=== PATIENT | female | born 1940 | race Caucasian/White ===

== ENCOUNTER → 2017-10-31 10:17 | Outpatient (CLI) | payer MEDICARE, SELFPAY ==
--- NOTE | 2017-10-31 10:19 | MM_ITS ---
MM Dig screening mamm BI w/CAD CAD Screening ORDERING PHYSICIAN : Juvenal Espinal MD PATIENT AGE: 76 years GENDER: Female COMPARISON: Previous mammograms: August 2015, 2016, July 2014, June 2013 INDICATION: No hormones. No new complaints. Nodularity family history TECHNIQUE: Standard CC and MLO images were obtained. R2 CAD reviewed. FINDINGS: Moderate density inhomogeneous breast pattern which somewhat decreases sensitivity mammography.. Moderate scattered fibroglandular elements bilateral. Scattered areas of minimal density in asymmetry have been seen on previous studies with no significant change. No dominant mass nor suspicious calcifications. RIGHT BREAST:No significant new findings LEFT BREAST: Scattered areas of focal density at the anterior lateral breast on cc view are similar to studies dating back to 2013. It dissipates from the CC and axillary cc view IMPRESSION: Stable mammogram No significant new findings either breast . Moderately dense breast Follow-up in one year BI-RADS Category: 2 Benign Finding(s) RECOMMENDED FOLLOW-UP: 1YR - 1 YEAR FOLLOW-UP (A letter has been sent to the patient regarding results of the study.) In
== END ==
PROVIDERS: Family Provider Family Medicine; PCP Nurse Practitioner; Visit Provider Family Medicine
DX: Z12.31 Encounter for screening mammogram for malignant neoplasm of breast (principal)
CPT/HCPCS: 77067

== ENCOUNTER 2020-10-12 12:26 | Emergency (ER) | payer MEDICARE, SELFPAY ==
[2020-10-12 12:33] VITALS: BP 134/87; PULSE 74; RESP 16; TEMP 36.6; O2SAT 99; BMI 24.6
[2020-10-12 12:42] VITALS: BP 145/101; PULSE 88; RESP 16; TEMP 36.7; O2SAT 97; BMI 24.6
--- NOTE | 2020-10-12 13:03 | HMH.EDUTC ---
[facility] [place] Disposition Clinical Impression: Lymphadenopathy of right cervical region Pharyngitis Qualifiers: Pharyngitis/tonsillitis etiology: unspecified etiology Qualified Code(s): J02.9 - Acute pharyngitis, unspecified Disposition: Home, Self-Care Condition on Discharge: Good Instructions: DI for Lymphadenopathy Additional Instructions: Drink plenty of fluids. Take tylenol for pain or fever. Return if you begin to have difficulty breathing. Follow up with your regular doctor. GO TO THE ER FOR ANY WORSENING SYMPTOMS Prescriptions: Azithromycin [Z-Marcelino 250mg Tab*] 250 mg PO UD DOSE PK #6 tab Transmission Status: Received by [facility] #[id number] Referrals: Juvenal Espinal MD [Primary Care Provider] - Time of Disposition: 13:12 Medical Decision Making - Medical Records Medical records reviewed: No: I reviewed the patient's medical records. - Jj Inquiry Pt receiving controlled substance: No Vital Signs: 10/12/20 12:33 10/12/20 12:42 10/12/20 13:54 Temperature 98 F 98.1 F 98.3 F Temperature Source Oral Oral Pulse Rate 91 H Pulse Rate [Right] 74 88 Respiratory Rate 16 16 16 Blood Pressure 139/98 H Blood Pressure [Right Arm] 134/87 145/101 H Blood Pressure Mean [Right Arm] 102 115 Blood Pressure Source [Right Arm] Automatic Cuff Automatic Cuff Blood Pressure Position [Right Arm] Sitting Sitting 02 Sat by Pulse Oximetry 99 97 Oxygen Delivery Method Room Air Room Air - Lab Data Lab results reviewed: Yes: I reviewed the patient's lab results. [facility] [place] HPI - General Stated complaint: swollen lymphodes and headache Time Seen by Provider: 10/12/20 13:03 Mode of Arrival: Ambulatory Source of Information: Patient Limitations: No Limitations Description of Symptoms (Recalled from Triage Doc. by RN): pt states the front of her neck and under her jaw is hurting. it appears swollen and pt voiced is muffled. she is a&o x4. HEENT Symptoms (Recalled from RN notes): Yes (swollen front of neck and lymph nodes) Resp Symptoms (Recalled from RN notes): No Skin Symptoms (Recalled from RN notes): No MS Symptoms (Recalled from RN notes): No Functional Status (Recalled from RN notes): na - History of Present Illness Provider Complaint: She c/o sore throat and swollen lymph nodes of the left side of her neck. She states that her symptoms began 2 days ago. She denies any shortness of breath or respiratory symptoms. She denies any known exposure to covid-19. - Related Data Previous Rx's Medication Instructions Recorded Azithromycin [Z-Marcelino 250mg Tab*] 250 mg PO UD DOSE PK #6 tab 10/12/20 Allergies Allergy/AdvReac Type Severity Reaction Status Date / Time No Known Allergies Allergy Verified 10/12/20 13:13 - Worker's Comp Is this a Worker's Comp case?: No [facility] History - Hepatitis A Screen Drug use history?: No High risk sexual behaviors?: No History of sexually transmitted infection?: No Currently employed?: No Childcare worker?: No Do you have indoor plumbing?: Yes Do you have electricity?: Yes Attestation statement:: This patient has been screened for Hepatitis A risk factors. I have reviewed the patient's past medical history: Yes - Social History Smoking Status: Unknown if ever smoked Alcohol Intake: never Occupational Status: retired ROS Obtained: Yes All systems reviewed & no additional complaints - Constitutional Constitutional: Denies chills, Denies fever(s), Reports poor appetite, Reports malaise - Eyes Eyes: Denies blind spots, Denies blurry vision, Denies change in vision, Denies diplopia, Denies eye discharge - ENT Ears, Nose, Mouth, and Throat: Denies dizziness, Denies otalgia, Reports nasal congestion, Reports post nasal drip, Denies sinus pain, Reports sinus pressure, Reports sore throat - Cardiovascular Cardiovascular: Denies chest pain - Respiratory Respiratory: Denies chest congestion, Denies cough, Denies dyspnea, Denies stridor, Denies
[2020-10-12 13:54] VITALS: BP 139/98; PULSE 91; RESP 16; TEMP 36.8
[2020-10-13 19:02] LABS: UTC Strep Screen (Rapid) Negative (Negative)
== END 2020-10-12 13:50 | disposition home or self-care (01) ==
PROVIDERS: Emergency Provider Nurse Practitioner Family; PCP Family Medicine
DX: J02.9 Acute pharyngitis, unspecified (principal); R59.1 Generalized enlarged lymph nodes
CPT/HCPCS: 87880; 99202; G0463; U0003

== ENCOUNTER 2022-03-06 10:45 | Emergency (ER) | payer MEDICARE, SELFPAY ==
[2022-03-06 12:15] VITALS: BP 160/79; PULSE 73; RESP 19; TEMP 36.8; O2SAT 98; BMI 23.5
--- NOTE | 2022-03-06 12:49 | HMH.EDUTC ---
[facility] [place] Disposition Clinical Impression: COPD exacerbation, Hypokalemia Disposition: Home, Self-Care Condition on Discharge: Good Instructions: DI for Chronic Obstructive Pulmonary Disease Additional Instructions: Follow up with Dr Espinal next week. Recheck potassium. Prescriptions: Potassium Chloride 20 meq PO DAILY 5 Days #5 tab Transmission Status: Pending to [facility] predniSONE [Prednisone 20mg Tab] 20 mg PO BID 5 Days #10 tab Transmission Status: Pending to [facility] Azithromycin [Zithromax 250mg tab] 250 mg PO DIRECTED #6 tab Transmission Status: Pending to [facility] Referrals: Juvenal Espinal MD [Primary Care Provider] - Time of Disposition: 14:31 Medical Decision Making - Jj Inquiry Pt receiving controlled substance: No Vital Signs: 03/06/22 12:15 Temperature 98.3 F Temperature Source Oral Pulse Rate [Right Brachial] 73 Respiratory Rate 19 Blood Pressure [Right Arm] 160/79 H Blood Pressure Mean [Right Arm] 106 Blood Pressure Source [Right Arm] Automatic Cuff Blood Pressure Position [Right Arm] Sitting 02 Sat by Pulse Oximetry 98 Oxygen Delivery Method Room Air - Lab Data Lab results reviewed: Yes: I reviewed the patient's lab results. Lab Results 03/06/22 12:53: Sodium 137, Potassium 3.3 L, Chloride 101, Carbon Dioxide 28, Anion Gap 11.3, BUN 11, Creatinine 0.80, Estimated Creat Clear 44, Estimated GFR 69, Est GFR ( Amer) 84, Glucose 117 H, Calcium 10.1, Total Bilirubin 0.8, AST 36, ALT 19, Alkaline Phosphatase 69, Total Protein 7.8, Albumin 4.6, Globulin 3.2, Albumin/Globulin Ratio 1.4 03/06/22 12:53: WBC 10.0, RBC 4.71, Hgb 14.3, Hct 41.8, MCV 88.7, MCH 30.4, MCHC 34.3, RDW 13.0, Plt Count 211, MPV 7.2 L, Neut % (Auto) 77.9, Lymph % (Auto) 14.8, Butts % (Auto) 5.1, Eos % (Auto) 1.1, Baso % (Auto) 1.0, Neut # (Auto) 7.8, Lymph # (Auto) 1.5, Butts # (Auto) 0.5, Eos # (Auto) 0.1, Baso # (Auto) 0.1 03/06/22 12:54: Group A Strep Rapid Negative Result diagrams: 03/06/22 12:53 03/06/22 12:53 Orders (Tests/Meds): ORDERS Category Date Time Status CBC Man Diff [Complete Blood Count Man Dif] Stat Lab 03/06/22 12:53 Results Full Resp Panel w/COVID ([facility]) Routine Lab 03/06/22 12:54 Received Strep Screen Confirmation Stat Micro 03/06/22 12:54 Received - Radiology Data #1 Image(s): Chest Image Reviewed: Yes I have reviewed radiologist's interpretation PROCEDURE INFORMATION: Exam: XR Chest Exam date and time: 03/06/2022 1:00 PM Age: 81 years old Clinical indication: Cough and shortness of breath; Additional info: Congestion TECHNIQUE: Imaging protocol: Radiologic exam of the chest. Views: 2 views. COMPARISON: No relevant prior studies available. 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 Focal area of pleural thickening measuring 3.5 cm x 9 mm in the right lung apex. No acute interstitial or airspace disease. Pleural spaces: There are no pleural effusions present. There is no evidence of pneumothorax. Heart/Mediastinum: Unremarkable. No cardiomegaly. Vasculature: Calcified aortic knob. Bones/joints: No acute skeletal abnormality or aggressive osseous lesion. IMPRESSION: 1. Ellipsoid pleural based thickening in the right lung apex measuring 3.5 cm x 9 mm, nonspecific. This could be related to an area of: pleural scarring, superimposition of structures, or underlying pleural disease. Consider correlation with contrast enhanced chest CT if clinically warranted. 2. COPD/emphysema. 3. No acute thoracic pathology otherwise appreciated. [facility] [place] HPI - General Stated complaint: COLD-BREATHING ISSUES- PAIN IN SIDE AT RIBS LEFT Time Seen by Provider: 03/06/22 12:00 Mode of Arrival: Ambulatory Source of Information: Patient Limitations: No Limitations Description of Symptoms (Recalled from Triage
--- NOTE | 2022-03-06 12:54 | XR_ITS ---
PROCEDURE INFORMATION: Exam: XR Chest Exam date and time: 03/06/2022 1:00 PM Age: 81 years old Clinical indication: Cough and shortness of breath; Additional info: Congestion TECHNIQUE: Imaging protocol: Radiologic exam of the chest. Views: 2 views. COMPARISON: No relevant prior studies available. 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 Focal area of pleural thickening measuring 3.5 cm x 9 mm in the right lung apex. No acute interstitial or airspace disease. Pleural spaces: There are no pleural effusions present. There is no evidence of pneumothorax. Heart/Mediastinum: Unremarkable. No cardiomegaly. Vasculature: Calcified aortic knob. Bones/joints: No acute skeletal abnormality or aggressive osseous lesion. IMPRESSION: 1. Ellipsoid pleural based thickening in the right lung apex measuring 3.5 cm x 9 mm, nonspecific. This could be related to an area of: pleural scarring, superimposition of structures, or underlying pleural disease. Consider correlation with contrast enhanced chest CT if clinically warranted. 2. COPD/emphysema. 3. No acute thoracic pathology otherwise appreciated.
[2022-03-06 13:27] LABS: MANUAL DIFFERENTIAL MANUAL DIFFERENTIAL (MANUAL DIFF)
[2022-03-06 13:27] LABS: Adenovirus,PCR Not Detected (NotDetected); Bordetella Pertussis Not Detected (NotDetected); Chlamydophila Pneumoniae, PCR Not Detected (NotDetected); Coronavirus 19, PCR Not Detected (NotDetected); Coronavirus 229E Not Detected (NotDetected); Coronavirus NL63 Not Detected (NotDetected); Coronavirus OC43 Not Detected (NotDetected); Coronovirus HKU1,PCR Not Detected (NotDetected); Influenza A, PCR Not Detected (NotDetected); Influenza AH1, 2009 Not Detected (NotDetected); Influenza AH1, PCR Not Detected (NotDetected); Influenza AH3,PCR Not Detected (NotDetected); Influenza B, PCR Not Detected (NotDetected); Mycoplasma Pneumoniae, PCR Not Detected (NotDetected); Parainfluenza 1, PCR Not Detected (NotDetected); Parainfluenza 2, PCR Not Detected (NotDetected); Parainfluenza 3, PCR Not Detected (NotDetected); Parainfluenza 4, PCR Not Detected (NotDetected); Respiratory Syncytial Virus Not Detected (NotDetected); Rhinovirus/Enterovirus Not Detected (NotDetected)
[2022-03-06 13:31] LABS: Basophils # 0.1 K/mm3 (0-0.2); Eosinophils # 0.1 K/mm3 (0.0-0.4); Eosinophils % 1.1 % (0.1-12.0); Hematocrit 41.8 % (37.0-47.0); Hemoglobin 14.3 g/dL (12.2-16.2); Lymphocytes # 1.5 K/mm3 (0.7-4.5); Lymphocytes % 14.8 % (10-50); Mean Corpuscular HGB Conc 34.3 g/dL (31.8-35.4); Mean Corpuscular Hemoglobin 30.4 pg (27.0-31.2); Mean Corpuscular Volume 88.7 fl (81-99); Mean Platelet Volume 7.2 fl (7.4-10.4); Monocytes # 0.5 K/mm3 (0.1-1.0); Monocytes % 5.1 % (1.7-9.3); Neutrophils # 7.8 K/mm3 (1.8-7.8); Neutrophils % 77.9 % (37.0-80.0); Platelet Count 211 K/mm3 (142-424); Red Blood Count 4.71 M/mm3 (4.20-5.40)
[2022-03-06 13:39] LABS: Strep Scrn Group A (Rapid) Negative (Negative)
[2022-03-06 13:49] LABS: Chloride 101 mmol/L (98-107)
[2022-03-06 13:50] LABS: Potassium 3.3 mmoL/L (3.5-5.1); Sodium 137 mmol/L (136-145)
[2022-03-06 13:52] LABS: Alanine Aminotransferase 19 U/L (12-78); Alkaline Phosphatase 69 U/L (38-126); Anion Gap 11.3 mEq/L (5-15); Aspartate Amino Transferase 36 U/L (14-36); Bilirubin,Total 0.8 mg/dl (0.2-1.3); Blood Urea Nitrogen 11 mg/dl (7-17); Carbon Dioxide 28 mmol/L (22.0-30.0); Creatinine Clearance Estimated 44 mL/min (50-200); Estimated Glomerular Filt Rate 69 ml/min (>60); GFR (African American) 84 ML/MIN (>60)
[2022-03-06 13:53] LABS: Albumin Level 4.6 g/dl (3.5-5.0); Albumin/Globulin Ratio 1.4 (1.1-1.8); Calcium 10.1 mg/dl (8.4-10.2); Globulin 3.2 g/dL (1.3-3.2); Glucose 117 mg/dl (74-100); Total Protein,Serum 7.8 g/dl (6.3-8.2)
[2022-03-06 14:33] VITALS: BP 160/79; PULSE 73; RESP 19; TEMP 36.8; O2SAT 98
[2022-03-06 16:22] LABS: Human Metapneumovirus Detected (NotDetected)
[2022-03-06 16:32] LABS: Lymphocytes % 22 % (10-50); Monocytes % 6 % (2-9); Neutrophils % 72 % (42-76); Platelet Estimate Normal; Total Cells Counted 100
[2022-03-06 16:33] LABS: Ovalocytes 1+; Schistocytes 1+
== END 2022-03-06 14:36 | disposition home or self-care (01) ==
PROVIDERS: Emergency Provider Physician Assistant; PCP Family Medicine
DX: J44.1 Chronic obstructive pulmonary disease with (acute) exacerbation (principal); E87.6 Hypokalemia; R09.81 Nasal congestion; R05.9 Cough, unspecified; R07.0 Pain in throat; R06.02 Shortness of breath; R07.82 Intercostal pain
CPT/HCPCS: 71046; 80053; 85007; 85014; 85018; 85048; 85049; 87430; 87581; 87632; 87798; 99212; C9803; G0463; U0003; U0005

== ENCOUNTER 2025-07-20 00:58 | Emergency (ER) | payer MEDICARE, SELFPAY ==
[2025-07-20 01:07] VITALS: BP 186/78; PULSE 74; RESP 22; TEMP 36.6; O2SAT 98; BMI 21.9
--- NOTE | 2025-07-20 01:21 | CT_ITS ---
PROCEDURE INFORMATION: Exam: CTA Head With Contrast, Arteriography Exam date and time: 07/20/2025 2:18 AM Age: 84 years old Clinical indication: Other: Mild AMS, general weakness TECHNIQUE: Imaging protocol: Computed tomographic angiography of the head with contrast. Exam focused on the arteries. Radiation optimization: All CT scans at this facility use at least one of these dose optimization techniques: automated exposure control; mA and/or kV adjustment per patient size (includes targeted exams where dose is matched to clinical indication); or iterative reconstruction. COMPARISON: CT HEAD/BRAIN WO CON 07/20/2025 2:16 AM FINDINGS: ANTERIOR CIRCULATION: INTRACRANIAL INTERNAL CAROTID ARTERIES: Mild chronic predominantly calcific plaque in the mid-distal ICA without acute flow-limiting stenosis. MIDDLE CEREBRAL ARTERIES: M1 and visualized M2 segments of the MCA are without acute flow limiting stenosis. ANTERIOR CEREBRAL ARTERIES: A1 and visualized A2 segments of the ARTHUR are without acute flow limiting stenosis. Anterior communicating artery is unremarkable. . POSTERIOR CIRCULATION: VERTEBRAL ARTERIES: Intracranial vertebral arteries and their visualized branches are without acute flow limiting stenosis. BASILAR ARTERY: Bulbous enlargement of the tip of the basilar artery measuring approximately 4 x 5 mm. POSTERIOR CEREBRAL ARTERIES: Irregularity of the P1/P2 segments of the SHALE MINER BLASTING with diffuse moderate to severe likely chronic narrowing of the LEFT SHALE MINER BLASTING and multiple focal areas of narrowing on the RIGHT. IMPRESSION: 1. Chronic atherosclerotic disease without acute flow-limiting stenosis or large vessel occlusion. 2. Diffuse moderate to severe likely chronic narrowing of the LEFT SHALE MINER BLASTING and multiple focal areas of narrowing on the RIGHT. COMMENTS: Recommend followup with MRI if persistent/new/worsening symptoms or symptoms unexplained by the current study. PROCEDURE INFORMATION: Exam: CTA Neck With Contrast Exam date and time: 07/20/2025 2:18 AM Age: 84 years old Clinical indication: Other: Mild AMS, general weakness TECHNIQUE: Imaging protocol: Computed tomographic angiography of the neck with contrast. Exam focused on the cervical segments of the vasculature. 3D rendering (Not supervised by radiologist): MIP and/or 3D reconstructed images were created by the technologist. Radiation optimization: All CT scans at this facility use at least one of these dose optimization techniques: automated exposure control; mA and/or kV adjustment per patient size (includes targeted exams where dose is matched to clinical indication); or iterative reconstruction. Contrast material: ISO 370; Contrast volume: 80 ml; Contrast route: INTRAVENOUS (IV); COMPARISON: No relevant prior studies available. FINDINGS: THORACIC VESSELS: Atherosclerotic disease of the visualized aortic arch and visualized thoracic aorta without aortic aneurysm or dissection. No significant narrowing at the origin of the neck vessels. . COMMON CAROTID ARTERIES: Calcific/noncalcific plaque along the rodriguez of the common carotid arteries without acute flow limiting stenosis. . CERVICAL INTERNAL CAROTID ARTERIES: Mild calcific/noncalcific plaque at the LEFT carotid bifurcation extending to the carotid bulb without acute flow-limiting stenosis of the cervical internal carotid arteries. No evidence of an aneurysm or a dissection. . VERTEBRAL ARTERIES: Cervical vertebral arteries are without acute flow limiting stenosis. . OTHER STRUCTURES: Osteopenia with chronic degenerative changes in the visualized spine and shoulder joint(s). Circumferential wall thickening of the cervical and visualized thoracic esophagus suggestive of reflux disease/esophagitis. Scarring/pleural thickening in the lung apices. Dominant LEFT thyroid nodule. IMPRESSION: 1. Mild chronic atherosclerotic disease without acute flow-limiting stenosis, no occlusion, aneurysm or dissection of the carotid and vertebral arteries in the neck. 2. Numerous other findings as described. Recommend correlation with pertinent clinical history and follow-up as indicated. COMMENTS: Consistent with the [employer]'s Incidental Findings Committee white paper (J Am Phong Radiol 2015): In patients aged 35 years and older with an incidental thyroid nodule equal to or greater than 1.[address], MRI or extrathyroidal US, further evaluation with dedicated thyroid US is recommended for patients with normal life expectancy and without comorbidities. For smaller nodules without suspicious features, no further evaluation or follow up is recommended. REFERENCES: NASCET CRITERIA. The degree of stenosis in the cervical segment of the internal carotid artery is based on NASCET criteria. Normal is no stenosis. Mild is less than 50% stenosis. Moderate is 50-69% stenosis. Severe is 70% to 99% stenosis. Total occlusion is no detectable patent lumen.
--- NOTE | 2025-07-20 01:21 | CT_ITS ---
PROCEDURE INFORMATION: Exam: CTA Neck With Contrast Exam date and time: 07/20/2025 2:18 AM Age: 84 years old Clinical indication: Other: Mild AMS, general weakness TECHNIQUE: Imaging protocol: Computed tomographic angiography of the neck with contrast. Exam focused on the cervical segments of the vasculature. 3D rendering (Not supervised by radiologist): MIP and/or 3D reconstructed images were created by the technologist. Radiation optimization: All CT scans at this facility use at least one of these dose optimization techniques: automated exposure control; mA and/or kV adjustment per patient size (includes targeted exams where dose is matched to clinical indication); or iterative reconstruction. Contrast material: ISO 370; Contrast volume: 80 ml; Contrast route: INTRAVENOUS (IV); COMPARISON: No relevant prior studies available. FINDINGS: THORACIC VESSELS: Atherosclerotic disease of the visualized aortic arch and visualized thoracic aorta without aortic aneurysm or dissection. No significant narrowing at the origin of the neck vessels. . COMMON CAROTID ARTERIES: Calcific/noncalcific plaque along the rodriguez of the common carotid arteries without acute flow limiting stenosis. . CERVICAL INTERNAL CAROTID ARTERIES: Mild calcific/noncalcific plaque at the LEFT carotid bifurcation extending to the carotid bulb without acute flow-limiting stenosis of the cervical internal carotid arteries. No evidence of an aneurysm or a dissection. . VERTEBRAL ARTERIES: Cervical vertebral arteries are without acute flow limiting stenosis. . OTHER STRUCTURES: Osteopenia with chronic degenerative changes in the visualized spine and shoulder joint(s). Circumferential wall thickening of the cervical and visualized thoracic esophagus suggestive of reflux disease/esophagitis. Scarring/pleural thickening in the lung apices. Dominant LEFT thyroid nodule. IMPRESSION: 1. Mild chronic atherosclerotic disease without acute flow-limiting stenosis, no occlusion, aneurysm or dissection of the carotid and vertebral arteries in the neck. 2. Numerous other findings as described. Recommend correlation with pertinent clinical history and follow-up as indicated. COMMENTS: Consistent with the [employer] [employer]'s Incidental Findings Committee white paper (J Am Phong Radiol 2015): In patients aged 35 years and older with an incidental thyroid nodule equal to or greater than 1.[address], MRI or extrathyroidal US, further evaluation with dedicated thyroid US is recommended for patients with normal life expectancy and without comorbidities. For smaller nodules without suspicious features, no further evaluation or follow up is recommended. REFERENCES: NASCET CRITERIA. The degree of stenosis in the cervical segment of the internal carotid artery is based on NASCET criteria. Normal is no stenosis. Mild is less than 50% stenosis. Moderate is 50-69% stenosis. Severe is 70% to 99% stenosis. Total occlusion is no detectable patent lumen. PROCEDURE INFORMATION: Exam: CTA Head With Contrast, Arteriography Exam date and time: 07/20/2025 2:18 AM Age: 84 years old Clinical indication: Other: Mild AMS, general weakness TECHNIQUE: Imaging protocol: Computed tomographic angiography of the head with contrast. Exam focused on the arteries. Radiation optimization: All CT scans at this facility use at least one of these dose optimization techniques: automated exposure control; mA and/or kV adjustment per patient size (includes targeted exams where dose is matched to clinical indication); or iterative reconstruction. COMPARISON: CT HEAD/BRAIN WO CON 07/20/2025 2:16 AM FINDINGS: ANTERIOR CIRCULATION: INTRACRANIAL INTERNAL CAROTID ARTERIES: Mild chronic predominantly calcific plaque in the mid-distal ICA without acute flow-limiting stenosis. MIDDLE CEREBRAL ARTERIES: M1 and visualized M2 segments of the MCA are without acute flow limiting stenosis. ANTERIOR CEREBRAL ARTERIES: A1 and visualized A2 segments of the ARTHUR are without acute flow limiting stenosis. Anterior communicating artery is unremarkable. . POSTERIOR CIRCULATION: VERTEBRAL ARTERIES: Intracranial vertebral arteries and their visualized branches are without acute flow limiting stenosis. BASILAR ARTERY: Bulbous enlargement of the tip of the basilar artery measuring approximately 4 x 5 mm. POSTERIOR CEREBRAL ARTERIES: Irregularity of the P1/P2 segments of the FI[employer] REIMBURSEMENT MANAGER with diffuse moderate to severe likely chronic narrowing of the LEFT FIELD REIMBURSEMENT MANAGER and multiple focal areas of narrowing on the RIGHT. IMPRESSION: 1. Chronic atherosclerotic disease without acute flow-limiting stenosis or large vessel occlusion. 2. Diffuse moderate to severe likely chronic narrowing of the LEFT FIELD REIMBURSEMENT MANAGER and multiple focal areas of narrowing on the RIGHT. COMMENTS: Recommend followup with MRI if persistent/new/worsening symptoms or symptoms unexplained by the current study.
--- NOTE | 2025-07-20 01:21 | CT_ITS ---
PROCEDURE INFORMATION: Exam: CT Head Without Contrast Exam date and time: 07/20/2025 2:16 AM Age: 84 years old Clinical indication: Other: Mild AMS, general weakness TECHNIQUE: Imaging protocol: Computed tomography of the head without contrast. Radiation optimization: All CT scans at this facility use at least one of these dose optimization techniques: automated exposure control; mA and/or kV adjustment per patient size (includes targeted exams where dose is matched to clinical indication); or iterative reconstruction. COMPARISON: No relevant prior studies available. FINDINGS: Brain: There is diffuse prominence of the cerebral sulci, cisterns, and ventricles consistent with atrophy. No intra or extra-axial fluid collections are noted. No mass or mass effect is seen. Periventricular white matter hypoattenuation is seen consistent with chronic small vessel disease. Cerebral ventricles: No ventriculomegaly. Paranasal sinuses: Visualized sinuses are unremarkable. No fluid levels. Mastoid air cells: Visualized mastoid air cells are well aerated. Bones: Unremarkable. No acute fracture. Soft tissues: Unremarkable. IMPRESSION: No acute process noted.
[2025-07-20 01:38] LABS: Hematocrit 42.6 % (37.0-47.0); Hemoglobin 14.7 g/dL (12.2-16.2); Immature Granulocytes % 0.4 %; Mean Corpuscular HGB Conc 34.5 g/dL (31.8-35.4); Mean Corpuscular Hemoglobin 31.6 pg (27.0-31.2); Mean Corpuscular Volume 91.6 fl (81-99); Nucleated Red Blood Cells % 0 %; Platelet Count 241 K/mm3 (142-424); Red Blood Count 4.65 M/mm3 (4.20-5.40); Red Cell Distribution Width-SD 42.1 fL; White Blood Count 7.2 K/mm3 (4.8-10.8)
[2025-07-20 01:40] LABS: Lactate Venous 1.3 mmol/L (0.4-2.0); VBG HCO3 26.1 mmol/L (23-30); VBG PCO2 47.8 mmol/L (35-51); VBG PH 7.36 mmol/L (7.31-7.41); VBG PO2 29.2 mmol/L (28-40)
[2025-07-20 01:43] LABS: Adenovirus,PCR Not Detected (NotDetected); Chlamydophila Pneumoniae, PCR Not Detected (NotDetected); Coronavirus 19, PCR Not Detected (NotDetected); Coronovirus HKU1,PCR Not Detected (NotDetected); Influenza A, PCR Not Detected (NotDetected); Influenza AH1, 2009 Not Detected (NotDetected); Influenza AH1, PCR Not Detected (NotDetected); Influenza AH3,PCR Not Detected (NotDetected); Influenza B, PCR Not Detected (NotDetected); Mycoplasma Pneumoniae, PCR Not Detected (NotDetected); Parainfluenza 1, PCR Not Detected (NotDetected); Parainfluenza 2, PCR Not Detected (NotDetected); Parainfluenza 3, PCR Not Detected (NotDetected); Parainfluenza 4, PCR Not Detected (NotDetected)
--- NOTE | 2025-07-20 01:45 | ECG_ITS ---
APPROVED REPORT Exam: Resting ECG HR:68 bpm ECG Measurements Heart Rate 68 AXES IL 180 P 69 QRSd 142 QRS 36 QT 439 T 95 QTc 456 Conclusion SINUS RHYTHM LEFT BUNDLE BRANCH BLOCK [120+ ms QRS DURATION, 80+ ms Q/S IN V1/V2, 85+ ms R IN I/aVL/V5/V6] No STEMI Electronically signed by : ERASMO RASMUSSEN, 07/20/2025 07:24:12
[2025-07-20 01:53] LABS: Alanine Aminotransferase 13 U/L (12-78); Albumin Level 4.8 g/dl (3.5-5.0); Albumin/Globulin Ratio 1.7 (1.1-1.8); Alkaline Phosphatase 91 U/L (38-126); Anion Gap 13.1 mEq/L (5-15); Aspartate Amino Transferase 27 U/L (14-36); Bilirubin,Total 0.6 mg/dl (0.2-1.3); Blood Urea Nitrogen 14 mg/dl (7-17); Calcium 9.7 mg/dl (8.4-10.2); Carbon Dioxide 24 mmol/L (22.0-30.0); Chloride 104 mmol/L (98-107); Creatinine Clearance Estimated 37 mL/min (50-200); Creatinine,Serum 0.80 mg/dl (0.52-1.04); Estimated Glomerular Filt Rate 69 ml/min (>60); GFR (African American) 83 ML/MIN (>60); Globulin 2.8 g/dL (1.3-3.2); Glucose 109 mg/dl (74-100); Potassium 4.1 mmoL/L (3.5-5.1); Sodium 137 mmol/L (136-145); Total Protein,Serum 7.6 g/dl (6.3-8.2)
[2025-07-20 02:06] LABS: Troponin I < 0.01 ng/ml (0.00-0.034)
[2025-07-20 02:12] LABS: Free T4 (Free Thyroxine) 1.12 ng/dl (0.78-2.19)
[2025-07-20 02:23] LABS: Thyroid Stimulating Hormone 2.94 uIU/mL (0.465-4.68)
[2025-07-20] MEDS: IOPAMIDOL-370 (76%);100ML BOTTLE 80 ML IV (02:29)
[2025-07-20] MEDS: SODIUM CHLORIDE 0.9% 10ML SYR (RAD ONLY) 10 ML IV (02:29)
[2025-07-20 02:38] LABS: Microscopic, Urine URINE MICROSCOPIC (MICROSCOPIC)
[2025-07-20 02:40] LABS: Bilirubin,Urine Negative (Negative); Color,Urine YELLOW (Yellow); Glucose,Urine (UA) Negative (Negative); Ketones,Urine Negative (Negative); Leukocyte Esterase,Urine 1+ (Negative); PH,Urine 7.0 (5.0-8.5); Protein,Urine Negative (Negative); Specific Gravity, Urine <= 1.005 (1.005-1.030); Urobilinogen,Urine 0.2 EU/dl (0.2)
[2025-07-20 02:44] LABS: Bacteria,Urine 4+ /lpf; RBC,Urine Occasional #/hpf (0-3); WBC,Urine 20-50 #/hpf (0-3)
[2025-07-20 02:50] LABS: Amphetamine/Metha Screen,Urine Negative ng/ml (<1000)
[2025-07-20 02:51] LABS: Barbiturates Screen,Urine Negative ng/ml (<200)
[2025-07-20 02:52] LABS: Benzodiazepines Screen,Urine Negative ng/ml (<200)
[2025-07-20 02:54] LABS: Methadone Screen,Urine Negative ng/ml (<300); Phencyclidine Screen,Urine Negative ng/ml (<25)
[2025-07-20 02:55] LABS: Opiate Screen,Urine Negative ng/ml (<300)
--- NOTE | 2025-07-20 04:24 | HMH.EDGENADL ---
Discharge Plan Disposition Patient Disposition: Home, Self-Care Condition: Good Prescriptions Prescriptions: New cefdinir 300 mg capsule 300 mg PO BID 7 Days Qty: 14 0RF No Action azithromycin 250 MG tablet 250 mg PO UD DOSE PK Qty: 6 0RF Rx Instructions: Take two (2) tablets today, then one (1) tablet days #2 thru #5 azithromycin 250 MG tablet 250 mg PO DIRECTED Qty: 6 0RF Rx Instructions: Take two (2) tablets on day #1, then one (1) tablet day #2 thru #5 prednisone 20 MG tablet 20 mg PO BID 5 Days Qty: 10 0RF potassium chloride 20 MEQ tablet extended release 20 meq PO DAILY 5 Days Qty: 5 0RF Referrals Follow up/Referrals: Juvenal Espinal MD [Primary Care Provider, Medical] - See instructions Referral Note: follow up UTI, esophageal thickening, HTN, thyroid nodule Activity Restrictions/Add. Instructions Additional Instructions/Restrictions: You were evaluated in the ER and are believed to be appropriate for discharge at this time. Continue taking your home medications as previously prescribed. Take the prescribed antibiotics (cefdinir) as directed, do not skip doses, do not stop taking them early. Drink plenty of fluids including water, Gatorade, Pedialyte to stay hydrated Call your primary care doctor and make an appointment to follow-up in 2 to 3 days. They should also recheck your blood pressure and your esophageal thickening and thyroid nodule. Return to the ER with any new, worsening, or otherwise concerning symptoms. Clinical Impressions Clinical Impression: UTI (urinary tract infection), Esophageal thickening, Thyroid nodule Print Language Print Language: Wallisian Discharge ED Provider: Anjali Aggarwal General Adult HPI General Chief complaint: PAIN Stated complaint: weakness, dry mouth, headache, abd pain Time Seen by Provider: 07/20/25 01:08 Mode of Arrival: Ambulatory Source of Information: Patient Description of Symptoms (Recalled from ER Triage Doc. by RN): Patient states around 1800 she began having 10/10 pain. States she also had periords of shaking. States she is shaking now, she is not ryley. Patient has normal and equal teletypewriter operator strengths. Patient states she just does not feel well. Patient is A&O however believes it to be 1900. Patient unable to pinpoint symptoms, states she is hurting everywhere and does not feel right. History of Present Illness HPI narrative: 84-year-old female presents to the ER complaining of shakiness, generalized weakness, not feeling well, altered mental status. Patient is alert and oriented but thought it was only 7 PM, she states around 5 PM she started having the symptoms described and sat in her recliner, she apparently fell asleep and woke up with persistent symptoms so she called her son who presents with her at bedside today. Patient states she feels shaky but when it is pointed out to her that she is not actually shaking, she is able to be redirected. She states at first that everything hurts , when asking her about her pain, she states she actually has no pain. She denies any chest pain or difficulty breathing, no abdominal pain, nausea, vomiting, diarrhea, dysuria, hematuria, headache, dizziness, numbness, tingling, or weakness. Her son states her walking today is slower than usual but the last time he saw her was 1 week ago. She denies any recent falls or injuries. No focal pain. No medications prior to arrival. No other complaints or concerns. Son states she is basically at her baseline though she is mixing up simple things she usually knows. Related Data Previous Rx's ?Medication ?Instructions ?Recorded azithromycin 250 mg tablet 250 mg PO UD DOSE PK #6 tabs 10/12/20 azithromycin 250 mg tablet 250 mg PO DIRECTED #6 tabs 03/06/22 potassium chloride 20 mEq 20 meq PO DAILY 5 days #5 tabs 03/06/22 tablet,extended release prednisone 20 mg tablet 20 mg PO BID 5 days #10 tabs 03/06/22 cefdinir 300 mg capsule 300 mg PO BID 7 days #14 caps 07/20/25 Allergies Allergy/AdvReac Type Severity Reaction Status Date / Time No Known Allergies Allergy Verified 10/12/20 13:13 [facility] Disclaimer: The information contained in this section may have been updated after the patient was seen, as this information can be updated by other users. Social History Smoking Status: Never smoker alcohol intake: never current occupational status: retired Travel in the last 8 weeks?: None Have you lived/traveled outside [place] in past 30 days?: No Contact w/someone who lives/traveled outside [place] past 30 days?: No Exposure to someone with infectious disease in past 14 days?: No Do you have a fever (greater than 100.4 F or 38 C)?: No Have you tested positive for COVID-19?: No Exposed to someone with COVID-19 in past 14 days?: No Do you have a sore throat?: No Do you have a cough?: No Do you have any weakness?: Yes Do you have any diarrhea?: No Are you experiencing any unusual bleeding?: No Do you have any muscle aches/pain?: No Do you have any abdominal pain?: Yes Are you experiencing loss of taste or smell?: No ROS Obtained: Yes Systems reviewed as appropriate & no additional complaints except as documented Per HPI Physical Exam General General appearance: alert and in no apparent distress Head Head exam: atraumatic and normocephalic Eye Eye exam: Present PERRL and EOMI; Absent jaundice or conjunctival injection ENT ENT exam: Present mucous membranes moist Neck Neck exam: Present normal inspection and full ROM Chest Chest inspection: Present symmetric chest wall rise Respiratory Respiratory exam: Present normal lung sounds bilaterally; Absent respiratory distress, wheezes or stridor Cardiovascular Cardiovascular exam: Present regular rate and normal rhythm Abdominal Exam Abdominal exam: Present soft; Absent distention, tenderness, guarding or rebound Extremities Exam Extremities exam: Present full ROM Back Exam Back exam: Present normal inspection and full ROM Neurological Exam Neurological exam: Present alert, oriented X3 (On my exam patient is fully oriented but she originally had to be redirected by nursing staff prior to me evaluating her), CN II-XII intact and other (Normal finger-nose and [id number]-ld-[id number], no cerebellar symptoms, no pronator drift); Absent motor sensory deficit Psychiatric Psychiatric exam: Present normal affect and normal mood Skin Skin exam: Present warm and dry Medical Decision Making Medical Records Medical records reviewed: Yes I reviewed the patient's medical records. Screening: Per USPSTF and CDC recommendations, given the prevalence of disease in our region, it is our hospital?s policy to screen for HIV and viral Hepatitis for all patients aged 18 and over and those with ongoing risk factors. Jj Inquiry Pt receiving controlled substance: No Vital Signs: 07/20/25 01:07 Temperature 97.8 F Temperature Source Oral Pulse Rate [Left] 74 Respiratory Rate 22 Blood Pressure [Right Arm] 186/78 H Blood Pressure Mean [Right Arm] 114 02 Sat by Pulse Oximetry 98 Oxygen Delivery Method Room Air Lab Data Lab Results 07/20/25 01:32: WBC 7.2, RBC 4.65, Hgb 14.7, Hct 42.6, MCV 91.6, MCH 31.6 H, MCHC 34.5, RDW 12.6, Plt Count 241, MPV 8.9, Neut % (Auto) 60.2, Lymph % (Auto) 24.6, [place] % (Auto) 8.5, Eos % (Auto) 5.6, Baso % (Auto) 0.7, Neut # (Auto) 4.3, Lymph # (Auto) 1.8, [place] # (Auto) 0.6, Eos # (Auto) 0.4, Baso # (Auto) 0.1, VBG pH 7.36, VBG pCO2 47.8, VBG pO2 29.2, VBG HCO3 26.1, VBG Total CO2 27.6 H, VBG O2 Saturation 58.0, VBG Base Excess 0.6, VBG Lactic Acid 1.3, Sodium 137, Potassium 4.1, Chloride 104, Carbon Dioxide 24, Anion Gap 13.1, BUN 14, Creatinine 0.80, Estimated Creat Clear 37, Estimated GFR 69, Est GFR ( Amer) 83, Glucose 109 H, Lactate 0.8, Calcium 9.7, Total Bilirubin 0.6, AST 27, ALT 13, Alkaline Phosphatase 91, Troponin I < 0.01, Total Protein 7.6, Albumin 4.8, Globulin 2.8, Albumin/Globulin Ratio 1.7, TSH 2.94, Free T4 1.12, Plasma/Serum Alcohol < 10 07/20/25 01:39: Chlamy pneumoniae PCR Not detected, Adenovirus (PCR) Not detected, B. pertussis DNA (PCR) Not detected, Coronavirus OC43 (PCR) Not detected, Coronavirus HKU1 (PCR) Not detected, Coronavirus 229E (PCR) Not detected, SARS-CoV-2 (PCR) Not detected, Coronavirus NL63 (PCR) Not detected, Human Metapneumovir PCR Not detected, Influenza A (H1) PCR Not detected, Influ A (H1N1/09) PCR Not detected, Influenza A (H3) PCR Not detected, Influenza Type A (PCR) Not detected, Influenza Type B (PCR) Not detected, M. pneumoniae (PCR) Not detected, Parainfluenza 1 (PCR) Not detected, Parainfluenza 2 (PCR) Not detected, Parainfluenza 3 (PCR) Not detected, Parainfluenza 4 (PCR) Not detected, RSV (PCR) Not detected, Entero/Rhino (PCR) Not detected 07/20/25 02:34: Urine Color Yellow, Urine Appearance Sl cloudy, Urine pH 7.0, Ur Specific [place] <= 1.005, Urine Protein Negative, Urine Glucose (UA) Negative, Urine Ketones Negative, Urine Blood Negative, Urine Nitrate Positive A, Urine Bilirubin Negative, Urine Urobilinogen 0.2, Ur Leukocyte Esterase 1+ A, Urine RBC Occasional, Urine WBC 20-50, Ur Squamous Epith Cells 3-5, Urine Bacteria 4+, Urine Opiates Screen Negative, Urine Methadone Screen Negative, Ur Barbituates Screen Negative, Ur Phencyclidine Scrn Negative, Ur Amphetamines Screen Negative, U Benzodiazepines Scrn Negative, Urine Cocaine Screen Negative, U Marijuana (THC) Screen Negative 07/20/25 01:32 07/20/25 01:32 Orders (Tests/Meds): ED MEDICATIONS Discontinued Medications Generic Name Dose Route Start Last Admin Trade Name Margie PRN Reason Stop Dose Admin Ceftriaxone Sodium 2 gm/ 100 mls @ 200 mls/hr 07/20/25 02:46 07/20/25 04:20 Sodium Chloride IV 07/20/25 03:15 Infused ONCE ONE Infusion Iopamidol 80 ml 07/20/25 02:28 07/20/25 02:29 Iopamidol-370 (76%);100ml Bottle IV 07/20/25 02:29 80 ml ONCE ONE Administration Sodium Chloride 10 ml 07/20/25 02:28 07/20/25 02:29 Sodium Chloride 0.9% 10ml Syr (Rad Only) IV 07/20/25 02:29 10 ml ONCE ONE Administration ORDERS Category Date Time Status CT angio head Stat Cat Scan 07/20/25 01:[address] angio neck Stat Cat Scan 07/20/25 01:[address] head/brain wo con Stat Cat Scan 07/20/25 01:21 Completed CBC w/Auto Diff [Complete Blood Count Auto Diff] Stat Lab 07/20/25 01:32 Completed CMP [Comprehensive Metabolic Panel] Stat Lab 07/20/25 01:32 Completed Ethanol [Ethyl Alcohol] Stat Lab 07/20/25 01:32 Completed Free T4 (Free Thyroxine) Stat Lab 07/20/25 01:32 Completed Full Resp Panel w/COVID ([facility]) Routine Lab 07/20/25 01:39 Completed Lactic Acid Stat Lab 07/20/25 01:32 Completed TSH [Thyroid Stimulating Hormone] Stat Lab 07/20/25 01:32 Completed Trop I [Troponin I] Stat Lab 07/20/25 01:32 Completed Troponin I Q3H Lab 07/20/25 07:15 Ordered UDS [Drug Screen,Urine] Stat Lab 07/20/25 02:34 Completed Urinalysis and Microscopic Stat Lab 07/20/25 02:34 Completed Blood Culture Stat Micro 07/20/25 03:00 Received Urine Culture Stat Micro 07/20/25 02:34 Received VBG [Venous Blood Gas] Stat RT 07/20/25 01:32 Completed Medical Decision Narrative: In summary, this 84-year-old female with history of COPD presents to the emergency department today with concerns of feeling generally weak, mild alteration in mental status. On initial evaluation patient is hypertensive but otherwise hemodynamically stable, afebrile, GCS is 15 but on arrival patient was confused about location, after being redirected by nursing staff, she is fully oriented on my exam. NIH is 0 on my exam. No cerebellar symptoms. Benign cardiopulmonary exam, benign abdominal exam.. Differential diagnosis includes but is not limited to ACS, hypoxia, hypercarbia, urinary tract infection, I considered the possibility of stroke or intracranial lesion but I have very low suspicion for this given patient does not have any neurologic deficits. Based on these concerns, I ordered hematologic and serum labs, CTs including angiography, urine studies, viral panel. ECG personally interpreted demonstrates sinus rhythm, rate 68, left bundle branch block, normal QTc, no STEMI. Labs personally reviewed demonstrate no leukocytosis or anemia, normal platelets, VBG with normal pH, no hypercarbia, patient is saturating well on room air, VBG lactic normal at 1.3. CMP nonactionable, initial troponin undetectably low less than 0.01 significantly reassuring in the setting of nonischemic ECG especially since patient has had symptoms for more than 6 hours. I do not believe serial troponins are indicated. UA positive for findings of infection, UDS negative, EtOH negative, viral respiratory panel negative for all analytes. With the findings on labs concerning for UTI, patient was started on Rocephin after blood cultures were administered. I believe this is the most likely explanation for her nonspecific symptoms and slight alteration from her baseline though she is oriented without neurologic deficits. CT imaging personally interpreted demonstrate no acute intracranial bleed, mass, or midline shift on CT head. CT angiography of the head and neck were reviewed, incidental findings including findings of thickening in the esophagus, thyroid nodule, and diffuse vascular disease without acute large vessel occlusion were discussed with patient and her adult son at bedside. With the presence of UTI do not believe the atherosclerotic disease correlates clinically especially since she has no neurologic deficits. Patient has ambulated to the restroom. Because she has brief moments of slight confusion, I believe it would be most appropriate for the patient to go home with help if available, otherwise she needs to be admitted to the hospital. I discussed this with the patient and her son at bedside, he states he is able to stay with her and take care of her. He will be able to help her up to the restroom if needed though she is currently steady on her feet, and ensure that she takes her medications. I believe this is a very reasonable plan. All incidental findings have been discussed with the patient and family and they were instructed to follow these up with PCP. Cefdinir prescribed. Patient and family were given instructions on continued symptomatic monitoring and management, medication use, follow-up instructions, and strict return precautions for the ER. They indicated understanding and the patient was discharged in stable condition. Critical Care Critical Care Time Critical Care Time: No
[2025-07-20 04:28] VITALS: BP 183/86; PULSE 71; RESP 18; TEMP 37.2; O2SAT 100
--- NOTE | 2025-07-23 11:57 | PC.NURSE ---
Final urine culture results discussed with . pt was admitted here the day after this visit and treated with acceptable antibiotics.
== END 2025-07-20 04:30 | disposition home or self-care (01) ==
PROVIDERS: Emergency Provider Emergency Medicine; PCP Family Medicine
DX: N39.0 Urinary tract infection, site not specified (principal); I44.7 Left bundle-branch block, unspecified; R53.1 Weakness; R41.82 Altered mental status, unspecified; K22.89 Other specified disease of esophagus; E04.1 Nontoxic single thyroid nodule; B96.20 Unspecified Escherichia coli [E. coli] as the cause of diseases classified elsewhere
CPT/HCPCS: 0223U; 70450; 70496; 70498; 80053; 80307; 80320; 81001; 82803; 83605; 84439; 84443; 84484; 85025; 87040; 87086; 87088; 87186; 93005; 96365; 99285; J0696; Q9967

== ENCOUNTER 2025-07-20 20:07 | Observation (INO) | payer MEDICARE, SELFPAY ==
--- NOTE | 2025-07-20 20:15 | XR_ITS ---
PROCEDURE INFORMATION: Exam: XR Chest Exam date and time: 07/20/2025 8:36 PM Age: 84 years old Clinical indication: Other: Encephalopathy TECHNIQUE: Imaging protocol: Radiologic exam of the chest. Views: 1 view. Total images: 1 COMPARISON: CR XR CHEST 2V 03/06/2022 1:00 PM FINDINGS: Lungs: Emphysematous changes. No acute infiltrate, airspace consolidation or vascular congestion. No pulmonary edema. Pleural spaces: Biapical pleural thickening/scarring. No pleural effusion or pneumothorax. Heart/Mediastinum: Unremarkable. No cardiomegaly. No mediastinal widening or hilar enlargement. Vasculature: Atherosclerotic aortic arch. Bones/joints: Osteopenia. Moderate degenerative changes thoracic spine. Stable chest wall structures. IMPRESSION: 1. No radiographically acute cardiopulmonary process. 2. Stable chronic findings.
--- NOTE | 2025-07-20 20:15 | ECG_ITS ---
APPROVED REPORT Exam: Resting ECG HR:85 bpm ECG Measurements Heart Rate 85 AXES MT 175 P 64 QRSd 139 QRS -12 QT 413 T 110 QTc 456 Conclusion Normal sinus rhythm Left axis Wide QRS with left bundle branch block morphology Negative Radha Electronically signed by : Froilan Washburn, 07/20/2025 22:07:47
--- NOTE | 2025-07-20 20:15 | CT_ITS ---
PROCEDURE INFORMATION: Exam: CT Head Without Contrast Exam date and time: 07/20/2025 8:32 PM Age: 84 years old Clinical indication: Altered mental status/memory loss and other: Encephalopathy TECHNIQUE: Imaging protocol: Computed tomography of the head without contrast. Total images: 567 Radiation optimization: All CT scans at this facility use at least one of these dose optimization techniques: automated exposure control; mA and/or kV adjustment per patient size (includes targeted exams where dose is matched to clinical indication); or iterative reconstruction. COMPARISON: CT ANGIO NECK 07/20/2025 2:18 AM FINDINGS: Brain: No acute intracranial hemorrhage, midline shift, or mass. Mild cortical and cerebellar atrophy. Mild remote white matter small-vessel ischemic changes. No acute territorial infarct. Basilar cisterns are preserved. Cerebral ventricles: No ventriculomegaly. Paranasal sinuses: 11 mm polyp or retention cyst base of the right maxillary sinus. Sinuses are otherwise clear. Mastoid air cells: Visualized mastoid air cells are well aerated. Bones: Osteopenia. No skull fracture. Soft tissues: Unremarkable. Vasculature: Moderate calcifications bilateral intracranial internal carotid arteries. Notes: Limited by attenuation artifact from dental hardware and bilateral earrings IMPRESSION: 1. No acute intracranial abnormality. 2. Mild chronic findings. 3. No significant change from 2:16 a.m. July 20, 2025.
[2025-07-20 20:17] VITALS: BP 131/90; PULSE 85; O2SAT 97
[2025-07-20 20:29] VITALS: BP 131/90; PULSE 84; RESP 18; TEMP 36.9; O2SAT 97; BMI 23.9
[2025-07-20 20:30] LABS: Hematocrit 43.9 % (37.0-47.0); Hemoglobin 15.1 g/dL (12.2-16.2); Immature Granulocytes % 0.2 %; Mean Corpuscular HGB Conc 34.4 g/dL (31.8-35.4); Mean Corpuscular Hemoglobin 31.4 pg (27.0-31.2); Mean Corpuscular Volume 91.3 fl (81-99); Nucleated Red Blood Cells % 0 %; Platelet Count 256 K/mm3 (142-424); Red Blood Count 4.81 M/mm3 (4.20-5.40); Red Cell Distribution Width-SD 42.3 fL; White Blood Count 9.2 K/mm3 (4.8-10.8)
[2025-07-20 20:39] LABS: Alanine Aminotransferase 16 U/L (12-78); Albumin Level 5.3 g/dl (3.5-5.0); Albumin/Globulin Ratio 1.6 (1.1-1.8); Alkaline Phosphatase 93 U/L (38-126); Anion Gap 11.9 mEq/L (5-15); Aspartate Amino Transferase 31 U/L (14-36); Bilirubin,Total 0.7 mg/dl (0.2-1.3); Blood Urea Nitrogen 13 mg/dl (7-17); Calcium 10.1 mg/dl (8.4-10.2); Carbon Dioxide 26 mmol/L (22.0-30.0); Chloride 101 mmol/L (98-107); Creatinine Clearance Estimated 40 mL/min (50-200); Creatinine,Serum 0.90 mg/dl (0.52-1.04); Estimated Glomerular Filt Rate 60 ml/min (>60); GFR (African American) 72 ML/MIN (>60); Globulin 3.3 g/dL (1.3-3.2); Glucose 98 mg/dl (74-100); Lipase 138 U/L (23-300); Potassium 3.9 mmoL/L (3.5-5.1); Sodium 135 mmol/L (136-145); Total Protein,Serum 8.6 g/dl (6.3-8.2)
[2025-07-20 20:48] LABS: Microscopic, Urine URINE MICROSCOPIC (MICROSCOPIC)
[2025-07-20 20:50] LABS: Bilirubin,Urine Negative (Negative); Color,Urine YELLOW (Yellow); Glucose,Urine (UA) Negative (Negative); Ketones,Urine TRACE (Negative); Leukocyte Esterase,Urine 2+ (Negative); PH,Urine 6.0 (5.0-8.5); Protein,Urine Negative (Negative); Specific Gravity, Urine <= 1.005 (1.005-1.030); Urobilinogen,Urine 0.2 EU/dl (0.2)
[2025-07-20 20:51] LABS: Troponin I 0.02 ng/ml (0.00-0.034)
[2025-07-20 20:55] LABS: Bacteria,Urine 1+ /lpf
[2025-07-20 21:01] LABS: Free T4 (Free Thyroxine) 1.24 ng/dl (0.78-2.19)
[2025-07-20 21:02] LABS: Barbiturates Screen,Urine Negative ng/ml (<200)
[2025-07-20 21:03] LABS: Amphetamine/Metha Screen,Urine Negative ng/ml (<1000); Benzodiazepines Screen,Urine Negative ng/ml (<200)
--- NOTE | 2025-07-20 21:04 | ED_ITS ---
Discharge Plan Disposition Patient Disposition: Admitted Condition: Good Prescriptions Prescriptions: No Action azithromycin 250 MG tablet 250 mg PO UD DOSE PK Qty: 6 0RF Rx Instructions: Take two (2) tablets today, then one (1) tablet days #2 thru #5 azithromycin 250 MG tablet 250 mg PO DIRECTED Qty: 6 0RF Rx Instructions: Take two (2) tablets on day #1, then one (1) tablet day #2 thru #5 prednisone 20 MG tablet 20 mg PO BID 5 Days Qty: 10 0RF potassium chloride 20 MEQ tablet extended release 20 meq PO DAILY 5 Days Qty: 5 0RF cefdinir 300 mg capsule 300 mg PO BID 7 Days Qty: 14 0RF Referrals Follow up/Referrals: Juvenal Espinal MD [Primary Care Provider, Medical] - See instructions Clinical Impressions Clinical Impression: Acute encephalopathy, Urinary tract infection Instructions Patient Instructions: DI for Altered Mental Status Print Language Print Language: Nauruan Discharge ED Provider: Froilan Washburn General Adult HPI General Chief complaint: Altered Mental Status Stated complaint: AMS Time Seen by Provider: 07/20/25 20:11 Mode of Arrival: Wheelchair Source of Information: Patient and Relative Description of Symptoms (Recalled from ER Triage Doc. by RN): pt reports to ED tonight with son after an episdode of confusion, son reports she was seen in the ED last night and diagnosed with a UTI, tonight the neighbor called because she was seen walking down the block. upon sons arrival to pt she was claiming someone was trying to break into her home. pt reports she has been out of her head and seeing things that arent there. History of Present Illness HPI narrative: This is an 84-year-old female patient, with past medical history of hypertension and hyperlipidemia currently on no medical therapy, who is presenting to the emergency department today for evaluation of encephalopathy. Patient was actually seen in our emergency department last night for encephalopathy and was diagnosed with a urinary tract infection. It was felt that her encephalopathy was quite mild so she was ultimately discharged home. During that visit she had a CTA of the head and neck and a CT head without contrast that was normal. The remainder of her labs were also normal. She was sent home with a prescription for cefdinir and family reports compliance with this medication. The patient does live by herself and she has 2 children that come to check on her intermittently throughout the day. This evening they went to check on her and found that she was wandering in the street and was completely disoriented. She was brought here for further evaluation. She tells me that she is unsure why she is here and that she is not experiencing any pain, chest pain, shortness of breath, or other symptoms Related Data Previous Rx's ?Medication ?Instructions ?Recorded azithromycin 250 mg tablet 250 mg PO UD DOSE PK #6 tab s 10/12/20 azithromycin 250 mg tablet 250 mg PO DIRECTED #6 ta bs 03/06/22 potassium chloride 20 mEq 20 meq PO DAILY 5 days #5 ta bs 03/06/22 tablet,extended release prednisone 20 mg tablet 20 mg PO BID 5 days #10 tabs 03/06/22 cefdinir 300 mg capsule 300 mg PO BID 7 days #14 cap s 07/20/25 Allergies Allergy/AdvReac Type Severity Reaction Status Date / Time No Known Allergies Allergy Verified 10/12/20 13:13 [facility] Disclaimer: The information contained in this section may have been updated after the patient was seen, as this information can be updated by other users. Social History Smoking Status: Never smoker alcohol intake: never current occupational status: retired Travel in the last 8 weeks?: None Have you lived/traveled outside US in past 30 days?: No Contact w/someone who lives/traveled outside US past 30 days?: No Exposure to someone with infectious disease in past 14 days?: No Do you have a fever (greater than 100.4 F or 38 C)?: No Have you tested positive for COVID-19?: No Exposed to someone with COVID-19 in past 14 days?: No Do you have a sore throat?: No Do you have a cough?: No Do you have any weakness?: No Do you have any diarrhea?: No Are you experiencing any unusual bleeding?: No Do you have any muscle aches/pain?: No Do you have any abdominal pain?: No Are you experiencing loss of taste or smell?: No ROS Obtained: Yes Systems reviewed as appropriate & no additional complaints except as documented Physical Exam General General appearance: other (See MDM) Respiratory Respiratory exam: Present other (See MDM) Cardiovascular Cardiovascular exam: Present other (See MDM) Neurological Exam Neurological exam: Present other (See MDM) Medical Decision Making Medical Records Medical records reviewed: Yes I reviewed the patient's medical records. Screening: Per USPSTF and CDC recommendations, given the prevalence of disease in our region, it is our hospital?s policy to screen for HIV and viral Hepatitis for all patients aged 18 and over and those with ongoing risk factors. Jj Inquiry Pt receiving controlled substance: No Jj was queried for this patient: No Vital Signs: 07/20/25 20:29 Temperature 98.4 F Temperature Source Oral Pulse Rate [Right] 84 Respiratory Rate 18 Blood Pressure [Right Arm] 131/90 Blood Pressure Mean [Right Arm] 103 02 Sat by Pulse Oximetry 97 Lab Data Lab Results 07/20/25 20:23: WBC 9.2 D, RBC 4.81, Hgb 15.1, Hct 43.9, MCV 91.3, MCH 31.4 H, MCHC 34.4, RDW 12.7, Plt Count 256, MPV 8.7, Neut % (Auto) 73.8, Lymph % (Auto) 15.5, [place] % (Auto) 7.5, Eos % (Auto) 2.3, Baso % (Auto) 0.7, Neut # (Auto) 6.8, Lymph # (Auto) 1.4, [place] # (Auto) 0.7, Eos # (Auto) 0.2, Baso # (Auto) 0.1, S odium 135 L, Potassium 3.9, Chloride 101, Carbon Dioxide 26, Anion Gap 11.9, BUN 13, Creatinine 0.90, Estimated Creat Clear 40, Estimated GFR 60, Est GFR ( Amer) 72, Glucose 98, Lactate 1.2, Calcium 10.1, Total Bilirubin 0.7, AST 31, ALT 16, Alkaline Phosphatase 93, Troponin I 0.02, Total Protein 8.6 H, A lbumin 5.3 H D, Globulin 3.3 H, Albumin/Globulin Ratio 1.6, Lipase 138 07/20/25 20:39: Urine Color Yellow, Urine Appearance Clear, Urine pH 6.0, Ur Specific [place] <= 1.005, Urine Protein Negative, Urine Glucose (UA) Negative, Urine Ketones Trace, Urine Blood Negative, Urine Nitrate Negative, Urine Bilirubin Negative, Urine Urobilinogen 0.2, Ur Leukocyte Esterase 2+ A, Urine RBC None, Urine WBC 3-5, Ur Squamous Epith Cells 3-5, Ur Renal Epithelial Cell 3-5, Urine Bacteria 1+ 07/20/25 20:23 07/20/25 20:23 Orders (Tests/Meds): ED MEDICATIONS Generic Name Dose Route Start Last Admin Trade Name Margie PRN Reason Stop Dose Admin Ceftriaxone Sodium 2 gm/ 100 mls @ 200 mls/hr 07/20/25 21:00 Sodium Chloride IV 07/30/25 20:59 Q24H CATHLEEN ORDERS Category Date Time Status CT head/brain wo con Stat Cat Scan 07/20/25 20:15 Completed CXR --portable [XR chest portable] Stat Exams 07/20/25 20:15 Completed CBC w/Auto Diff [Complete Blood Count Auto Diff] Stat Lab 07/20/25 20:23 Completed CMP [Comprehensive Metabolic Panel] Stat Lab 07/20/25 20:23 Results Free T4 (Free Thyroxine) Stat Lab 07/20/25 20:23 Received Lactic Acid Stat Lab 07/20/25 20:23 Completed Lipase Stat Lab 07/20/25 20:23 Results TSH [Thyroid Stimulating Hormone] Stat Lab 07/20/25 20:23 Results Troponin I Q3H Lab 07/20/25 23:30 Ordered Troponin I Q3H Lab 07/21/25 02:30 Ordered Troponin I Stat Lab 07/20/25 20:23 Results UDS [Drug Screen,Urine] Stat Lab 07/20/25 20:45 Received Urinalysis and Microscopic Stat Lab 07/20/25 20:39 Completed Urine Culture Stat Micro 07/20/25 20:45 Received Medical Decision Narrative: In summary, this is an 84-year-old female patient who is presenting to the Emergency Department today for evaluation of encephalopathy in the setting of a urinary tract infection diagnosed yesterday. Patient's comorbidities include hypertension and hyperlipidemia which are notable therapy as she is not currently on any medications. I have reviewed the patient's laboratory work from last night and her urinalysis showed 20-50 white blood cells, leukocyte esterase, and positive nitrites. She was discharged home with cefdinir and her family reports compliance with this medication today. Despite this, she was found wandering in the streets this evening and was completely disoriented but family found her so they brought her here for further evaluation. On initial evaluation of the patient they were resting comfortably in no acute distress and nontoxic in appearance. They are hemodynamically stable, saturating well room air, and are neurologically intact. On physical examination the patient is alert and oriented to self and place but she is disoriented to time. Heart and lungs are clear to auscultation bilaterally. She has no abdominal tenderness to palpation. NIH is 0. No abnormal cerebellar signs. Differential diagnosis includes urinary tract infection, pyelonephritis, intracranial hemorrhage, ACS/OK, electrolyte derangement, acute kidney injury, anemia, hyperthyroidism, hypothyroidism, among others. Workup was initiated with hematologic labs as well as an EKG, chest x-ray, and CT scan of the head without IV contrast. EKG was personally interpreted by me and demonstrates normal sinus rhythm at a rate of 85 bpm, left axis, no CO prolongation, wide QRS with left branch block morphology, no QTc prolongation. No ST ovation or depression. Negative Sgarbossa. This EKG appears to be unchanged from last night CT head was personally interpreted by me and demonstrates no large intracranial hemorrhages. Official radiology read is in agreement states there is no changes from CT scan last night. Chest x-ray was personally interpreted by me and demonstrates no lobar consolidation or pleural effusion. Official radiology read is in agreement states there is no acute abnormality Labs were also personally interpreted by me and demonstrate no evidence of leukocytosis or anemia. No significant electrolyte derangements or evidence of acute kidney injury. Urine shows persistent white cells and leukocyte esterase, she is clear for nitrates. I do feel that her underlying encephalopathy is largely being driven by urinary tract infection that was diagnosed yesterday. Given this, I do not feel the patient is safe for discharge home given that she has nobody to care for her during the evening hours and she is so encephalopathic that she has obviously left the house and has wandered down the street which puts her at risk for harm. Therefore I had an interactive discussion with the internal medicine service who agreed to evaluate the patient the emergency department. After our discussion their evaluation have agreed to admit the patient to their service and accpet primary responsibility patient moving forward. Critical Care Critical Care Time Critical Care Time: No
[2025-07-20 21:05] LABS: Methadone Screen,Urine Negative ng/ml (<300)
[2025-07-20 21:06] LABS: Opiate Screen,Urine Negative ng/ml (<300)
[2025-07-20 21:07] LABS: Phencyclidine Screen,Urine Negative ng/ml (<25)
[2025-07-20 21:10] LABS: Thyroid Stimulating Hormone 2.97 uIU/mL (0.465-4.68)
--- NOTE | 2025-07-20 21:20 | PC.NURSE ---
report called to MEJIA Uriostegui
[2025-07-20 21:34] VITALS: BP 131/90; PULSE 89; RESP 18; TEMP 36.8; O2SAT 97
--- NOTE | 2025-07-20 21:36 | PC.NURSE ---
Patient arrived to floor via wheelchair from ED at 21:26.
[2025-07-20 21:40] VITALS: BP 164/89; PULSE 83; RESP 16; TEMP 36.6; O2SAT 97; BMI 24.4
--- NOTE | 2025-07-20 21:41 | P.HP_ITS ---
<Statement entered by Jeremy Mcclelland MD - 07/22/25 11:05> Agree with plan of care as outlined by the MAPPING EDITOR. History of Present Illness *Admission Date: 07/20/25 *Reason for visit:: Confusion *History of present illness: Patient is a 84-year-old female with a past medical history significant for hyperlipidemia and hypertension. Presents to Psychiatric due to confusion. She was recently evaluated within the emergency department yesterday and was found to have a urinary tract infection, prescribed cefdinir and discharged home. Today family states that patient was roaming down the road confused. Patient resides at home by herself, due to acute mental status change family opted to follow-up to the emergency department. Daughter at bedside present states patient was able to take 1 dose of her antibiotic for the urinary tract infection. Patient is alert to self and place, confused to time. Patient is complaining of right lower extremity pain with different position. Patient undetermined if she had fallen, family unsure as well. CT had was obtained while in the emergency department which was unremarkable for any acute findings. Although pleasantly confused patient denies fever, chills, nausea, vomiting, chest pain or shortness of breath. Initial ED workup included laboratory studies, sodium level 135, total protein 8.6, albumin 5.3, UA with 2+ leukocyte esterase. Imaging study included head CT, chest x-ray, neck CTA, head CTA, I personally reviewed, studies without acute finding. Patient assessed at bedside without acute distress, resting in bed comfortably, currently without complaint. Hemodynamically stable. [facility] Disclaimer: The information contained in this section may have been updated after the patient was seen, as this information can be updated by other users. Social History (Updated 07/20/25 @ 22:00 by Gila Lehman RN) Smoking Status: Never smoker alcohol intake: never current occupational status: retired Travel in the last 8 weeks?: None Have you lived/traveled outside US in past 30 days?: No Contact w/someone who lives/traveled outside US past 30 days?: No Exposure to someone with infectious disease in past 14 days?: No Do you have a fever (greater than 100.4 F or 38 C)?: No Have you tested positive for COVID-19?: No Exposed to someone with COVID-19 in past 14 days?: No Do you have a sore throat?: No Do you have a cough?: No Do you have any weakness?: No Do you have any diarrhea?: No Are you experiencing any unusual bleeding?: No Do you have any muscle aches/pain?: No Do you have any abdominal pain?: No Are you experiencing loss of taste or smell?: No Other Medical History Have you received the Flu Vaccine for this season: No Have you received the Pneumonia Vaccine: No Review of Systems Review of Systems Review of systems:: pertinent systems reviewed and negative unless documented below Constitutional Constitutional: Reports as per HPI Eyes Eyes: Reports as per HPI ENT Ears, Nose, Mouth, and Throat: Reports as per HPI *Cardiovascular Cardiovascular: Reports as per HPI *Respiratory Respiratory: Reports as per HPI *Gastrointestinal Gastrointestinal: Reports as per HPI *Genitourinary Genitourinary: Reports as per HPI *Musculoskeletal Comments: right lower extremity pain Integumentary/Breasts Skin/Breast: Reports as per HPI *Neurologic Neurologic: Reports as per HPI Psychiatric Psychiatric: Reports as per HPI Endocrine Endocrine: Reports as per HPI Hematologic/Lymphatic Hematologic/Lymphatic: Reports as per HPI Allergic/Immunologic Allergic/Immunologic: Reports as per HPI Meds Home Medications and Allergies Home Medications ?Medication ?Instructions ?Recorded ?Confirmed ?Type cefdinir 300 mg capsule 300 mg PO BID 07/20/2507/20 History New Prescriptions to Start Prescriptions: Allergies Allergy/AdvReac Type Severity Reaction Status Date / Time No Known Allergies Allergy Verified 10/12/20 13:13 Exam Data for Last 24 hours Vital signs and Labs for Last 24 Hours: Temp Pulse Resp BP Pulse Ox O2 Del Method 97.9 F 83 16 164/89 H 95 Room Air 07/20/25 21:40 07/20/25 21:40 07/20/25 21:40 07/20/25 21:40 07/20/25 23:35 07/21/25 01:00 Laboratory Results - last 24 hr 07/20/25 20:23: WBC 9.2 D, RBC 4.81, Hgb 15.1, Hct 43.9, MCV 91.3, MCH 31.4 H, MCHC 34.4, RDW 12.7, Plt Count 256, MPV 8.7, Neut % (Auto) 73.8, Lymph % (Auto) 15.5, [place] % (Auto) 7.5, Eos % (Auto) 2.3, Baso % (Auto) 0.7, Neut # (Auto) 6.8, Lymph # (Auto) 1.4, [place] # (Auto) 0.7, Eos # (Auto) 0.2, Baso # (Auto) 0.1, Sodium 135 L, Potassium 3.9, Chloride 101, Carbon Dioxide 26, Anion Gap 11.9, BUN 13, Creatinine 0.90, Estimated Creat Clear 40, Estimated GFR 60, Est GFR ( Amer) 72, Glucose 98, Lactate 1.2, Calcium 10.1, Total Bilirubin 0.7, AST 31, ALT 16, Alkaline Phosphatase 93, Troponin I 0.02, Total Protein 8.6 H, Albumin 5.3 H D, Globulin 3.3 H, Albumin/Globulin Ratio 1.6, Lipase 138, TSH 2.97, Free T4 1.24 07/20/25 20:39: Urine Color Yellow, Urine Appearance Clear, Urine pH 6.0, Ur Specific [place] <= 1.005, Urine Protein Negative, Urine Glucose (UA) Negative, Urine Ketones Trace, Urine Blood Negative, Urine Nitrate Negative, Urine Bilirubin Negative, Urine Urobilinogen 0.2, Ur Leukocyte Esterase 2+ A, Urine RBC None, Urine WBC 3-5, Ur Squamous Epith Cells 3-5, Ur Renal Epithelial Cell 3-5, Urine Bacteria 1+ 07/20/25 20:45: Urine Opiates Screen Negative, Urine Methadone Screen Negative, Ur Barbituates Screen Negative, Ur Phencyclidine Scrn Negative, Ur Amphetamines Screen Negative, U Benzodiazepines Scrn Negative, Urine Cocaine Screen Negative, U Marijuana (THC) Screen Negative 07/20/25 23:35: Troponin I 0.02 I & O for Last 24 hours: Intake & Output 07/18/25 07/19/25 07/20/25 07/21/25 23:59 23:59 23:59 23:59 Intake Total 100 / 140 40 / 40 Output Total 200 / 200 Balance -100 / -60 40 / 40 Weight 60.237 kg Constitutional Constitutional: no acute distress *Routine HEENT Exam Head: Present normocephalic and atraumatic Eye: Present EOMI, PERRL and normal accommodation ENT: Present mucous membranes moist *Routine Neck Exam Neck: Present supple and full ROM *Routine Respiratory Exam Respiratory: Present normal respiratory effort *Routine Cardiovascular Exam Cardiovascular: Present RRR, Normal S1 and Normal S2 *Routine Abdominal Exam Abdominal: Present soft and normoactive bowel sounds *Routine Rectal Exam Rectal:: deferred *Routine Genitalia Exam Genitalia:: deferred *Routine Skin Exam Skin: Present intact *Routine Neurological Exam Neurological: Present alert, CN II-XII intact, altered mental status and normal speech Routine Psychiatric Exam Psychiatric: Present unable to assess Assessment and Plan *Assessment and plan (1) Acute encephalopathy: Status: Acute Category: Medical Code(s): G93.40 - Encephalopathy, unspecified (2) Urinary tract infection: Status: Acute Qualifiers: Hematuria presence: without hematuria Urinary tract infection type: site unspecified Qualified Code(s): N39.0 - Urinary tract infection, site not specified Category: Medical Code(s): N39.0 - Urinary tract infection, site not specified (3) History of recent fall: Status: Acute Category: Medical Code(s): Z91.81 - History of falling (4) Pain of right lower extremity: Status: Acute Category: Medical Code(s): M79.604 - Pain in right leg Plan 1. Acute metabolic encephalopathy/UTI: Recent change in mentation/confusion. Imaging studies as noted above without any acute findings. Diagnosed with urinary tract infection 1 day prior likely suspected because of underlying acute confusion. Family at bedside noted patient was able to take 1 dose of prescribed antibiotic cefdinir. UA with noted improvement, urine culture obtained and pending. Patient received Rocephin 2 g while in the emergency department. Currently alert and oriented x 2. Continue to monitor. Follow morning labs. 2. History of recent fall/pain right lower extremity: Due to acute confusion patient unable to elaborate if she had sustained a fall yesterday. Chest x-ray and head CT scans obtained without any acute finding. Patient ultimately complaining of right upper leg pain with different position. Able to bend lower extremity without extreme pain although notable discomfort. Right lower x-ray of extremity requested to rule out fracture. Daughter at bedside reports patient did sustain a fall a few weeks ago requiring assistance from a neighbor. Patient herself reports occasional slips in recent past while outside ambulating. PT/OT. High risk for falls. Fall precautions. 3. DVT prophylaxis: SCD's Full Code/regular diet I personally discussed the management of this patient with the emergency department provider, agreement with admission due to acute neuro change; suspect likely underlying UTI contributing factor, resume antibiotic therapy, trend labs. Imaging studies to rule out fracture suspected fall, PT OT.
[2025-07-20 23:35] VITALS: O2SAT 95
[2025-07-21] LABS: Troponin I 0.02 ng/ml (0.00-0.034)
[2025-07-21 04:00] VITALS: BP 148/75; PULSE 70; RESP 14; TEMP 36.9; O2SAT 97; BMI 23.9
[2025-07-21 06:56] LABS: Hematocrit 38.3 % (37.0-47.0); Immature Granulocytes % 0.3 %; Mean Corpuscular HGB Conc 33.7 g/dL (31.8-35.4); Mean Corpuscular Hemoglobin 31.2 pg (27.0-31.2); Mean Corpuscular Volume 92.5 fl (81-99); Nucleated Red Blood Cells % 0 %; Platelet Count 221 K/mm3 (142-424); Red Blood Count 4.14 M/mm3 (4.20-5.40); Red Cell Distribution Width-SD 43.6 fL; White Blood Count 6.2 K/mm3 (4.8-10.8)
[2025-07-21 07:18] LABS: Anion Gap 7.6 mEq/L (5-15); Blood Urea Nitrogen 10 mg/dl (7-17); Calcium 9.3 mg/dl (8.4-10.2); Carbon Dioxide 23 mmol/L (22.0-30.0); Chloride 107 mmol/L (98-107); Creatinine Clearance Estimated 40 mL/min (50-200); Creatinine,Serum 0.80 mg/dl (0.52-1.04); Estimated Glomerular Filt Rate 69 ml/min (>60); GFR (African American) 83 ML/MIN (>60); Glucose 86 mg/dl (74-100); Potassium 3.6 mmoL/L (3.5-5.1); Sodium 134 mmol/L (136-145)
[2025-07-21 07:37] LABS: Troponin I 0.01 ng/ml (0.00-0.034)
[2025-07-21 07:41] LABS: Hemoglobin 12.9 g/dL (12.2-16.2)
[2025-07-21 08:00] VITALS: BP 147/71; PULSE 68; RESP 18; TEMP 36.9; O2SAT 97
--- NOTE | 2025-07-21 09:17 | HMH.PHAINT1 ---
Pharmacy Intervention Comments: MEDICATION RECONCILIATION COMPLETE USING EXTERNAL PHARMACY FILL HISTORY.
--- NOTE | 2025-07-21 09:44 | PC.NURSE ---
prelim urine culture forwarded to the hospitalist as she was admitted.
--- NOTE | 2025-07-21 10:23 | HMH.PTEV ---
Physical Therapy Evaluation Rehab PT IP Evaluation Start: 07/20/25 22:03 Freq: ONCE Status: Active Protocol: Document 07/21/25 10:17 RUSLAN (Rec: 07/21/25 10:22 RUSLAN [id number]) Subjective/History History History Patient is a 84-year-old female with a past medical history significant for hyperlipidemia and hypertension . Presents to [facility] due to confusion. She was recently evaluated within the emergency department yesterday and was found to have a urinary tract infection, prescribed cefdinir and discharged home. Today family states that patient was roaming down the road confused. Patient resides at home by herself, due to acute mental status change family opted to follow-up to the emergency department. Daughter at bedside present states patient was able to take 1 dose of her antibiotic for the urinary tract infection. Patient is alert to self and place, confused to time. Patient is complaining of right lower extremity pain with different position. Patient undetermined if she had fallen, family unsure as well. CT had was obtained while in the emergency department which was unremarkable for any acute findings. Although pleasantly confused patient denies fever, chills, nausea, vomiting, chest pain or shortness of breath. Initial ED workup included laboratory studies, sodium level 135, total protein 8.6, albumin 5.3, UA with 2+ leukocyte esterase. Imaging study included head CT, chest x-ray, neck CTA, head CTA, I personally reviewed, studies without acute finding. Patient assessed at bedside without acute distress, resting in bed comfortably, currently without complaint. Hemodynamically stable. Subjective Subjective Pt is oriented to person, place and time. Pt unable to provide clear subjective history, however she does report that she lives in a house by herself. Pt reports that she does not use any AD currently and is otherwise independent with all ADLs. Pt reports that she has had one fall a few months ago but reports that she has no other issues with her balance. New diagnosis of No cancer in past 12 months? [facility] How much help from another person do you currently need... Turning from your None back to your side while in a flat bed without using bedrails? Moving from lying on None back to sitting on the side of a flat bed without using bedrails? Moving to and from a None bed to a chair ( including a wheelchair)? Standing up from a None chair using your arms? (e.g., wheelchair, bedside chair) Walking in hospital None room? Climbing 3-5 steps A little with a railing? Mobility Score 23 Mobility Level [facility] Mobility 7 Walk 25 feet or more Mobility Calculator Rehab PT IP Eval Objective Appearance Patient Behavior Appropriate,Confused Patient Orientation Person,Place,Time Difficulty following none instructions Speech Pattern Clear Ambulation Patient Able to Yes Ambulate Ambulation Observation IP General Gait No Deviations/Normal Pattern Observation Ambulation Distance 75 (feet) Ambulation Assistive None Device Ambulation Ability Supervision/Stand by Balance Ability to Arise Able, w/o using arms Sitting Balance Steady, safe Standing Balance Narrow stance w/o support Dynamic Sitting Normal Balance Ability Dynamic Standing Normal Balance Ability Transfers Bed Transfer Ability Supervision/Stand by Chair Transfer Supervision/Stand by Ability Sit to Stand Bed Supervision/Stand by Transfer Ability Sit to Stand Chair Supervision/Stand by Transfer Ability Rehab PT IP prob,goals,plan Problems Date of Evaluation: 07/21/25 Rehab Potential Rehab Potential Innapropriate for Skilled Therapy Discharge Plan PT Discharge Plan Pt presents at her baseline for mobility and balance at this time. From a mobility standpoint, the pt presents safely for a discharge to home when deemed medically stable. Skilled PT is not indicated for this pt during her acute stay. Eval Complexity Eval Charge Codes 94990 - Low Complexity PHYSICIAN CERTIFICATION: I certify the specified therapy services for Shonna Cordero are required, authorized, and reviewed every 30 days.
[2025-07-21 11:17] LABS: Vitamin B12 223 pg/mL (239-931)
--- NOTE | 2025-07-21 11:30 | HMH.PHAAMS2 ---
- Antimicrobial Stewardship Review culture & sensitivity review Stewardship interventions: culture & sensitivity review Comments: URINE CX PENDING, BLOOD CX NO GROWTH AT 24 HRS. TREATING UTI EMPIRICALLY WITH ROCEPHIN.
--- NOTE | 2025-07-21 11:37 | EXP.DC.SUM ---
General Admission date:: 07/20/25 HPI HPI HPI: Patient is a 84-year-old female with a past medical history significant for hyperlipidemia and hypertension. Presents to [facility] due to confusion. She was recently evaluated within the emergency department yesterday and was found to have a urinary tract infection, prescribed cefdinir and discharged home. Today family states that patient was roaming down the road confused. Patient resides at home by herself, due to acute mental status change family opted to follow-up to the emergency department. Daughter at bedside present states patient was able to take 1 dose of her antibiotic for the urinary tract infection. Patient is alert to self and place, confused to time. Patient is complaining of right lower extremity pain with different position. Patient undetermined if she had fallen, family unsure as well. CT had was obtained while in the emergency department which was unremarkable for any acute findings. Although pleasantly confused patient denies fever, chills, nausea, vomiting, chest pain or shortness of breath. Initial ED workup included laboratory studies, sodium level 135, total protein 8.6, albumin 5.3, UA with 2+ leukocyte esterase. Imaging study included head CT, chest x-ray, neck CTA, head CTA, I personally reviewed, studies without acute finding. Patient assessed at bedside without acute distress, resting in bed comfortably, currently without complaint. Hemodynamically stable. Hospital Course Hospital Course Hospital Course: Shonna Cordero is an 84-year-old female who presented with confusion, roaming the streets. Found to have a UTI, and likely acute metabolic encephalopathy from it. Patient improved with IV ceftriaxone. Currently alert and oriented x 3, ambulating independently. Was recently discharged from the ED yesterday with cefdinir 300 mg twice daily, advised patient to diamond picker prescription for to complete UTI treatment. Patient agreeable to this plan. Exam Data for Last 24 hours Vital signs and Labs for Last 24 Hours: Temp Pulse Resp BP Pulse Ox O2 Del Method 98.5 F 70 14 148/75 H 97 Room Air 07/21/25 04:00 07/21/25 04:00 07/21/25 04:00 07/21/25 04:00 07/21/25 04:00 07/21/25 09:00 Laboratory Results - last 24 hr 07/20/25 20:23: WBC 9.2 D, RBC 4.81, Hgb 15.1, Hct 43.9, MCV 91.3, MCH 31.4 H, MCHC 34.4, RDW 12.7, Plt Count 256, MPV 8.7, Neut % (Auto) 73.8, Lymph % (Auto) 15.5, [place] % (Auto) 7.5, Eos % (Auto) 2.3, Baso % (Auto) 0.7, Neut # (Auto) 6.8, Lymph # (Auto) 1.4, [place] # (Auto) 0.7, Eos # (Auto) 0.2, Baso # (Auto) 0.1, Sodium 135 L, Potassium 3.9, Chloride 101, Carbon Dioxide 26, Anion Gap 11.9, BUN 13, Creatinine 0.90, Estimated Creat Clear 40, Estimated GFR 60, Est GFR ( Amer) 72, Glucose 98, Lactate 1.2, Calcium 10.1, Total Bilirubin 0.7, AST 31, ALT 16, Alkaline Phosphatase 93, Troponin I 0.02, Total Protein 8.6 H, Albumin 5.3 H D, Globulin 3.3 H, Albumin/Globulin Ratio 1.6, Lipase 138, TSH 2.97, Free T4 1.24 07/20/25 20:39: Urine Color Yellow, Urine Appearance Clear, Urine pH 6.0, Ur Specific [place] <= 1.005, Urine Protein Negative, Urine Glucose (UA) Negative, Urine Ketones Trace, Urine Blood Negative, Urine Nitrate Negative, Urine Bilirubin Negative, Urine Urobilinogen 0.2, Ur Leukocyte Esterase 2+ A, Urine RBC None, Urine WBC 3-5, Ur Squamous Epith Cells 3-5, Ur Renal Epithelial Cell 3-5, Urine Bacteria 1+ 07/20/25 20:45: Urine Opiates Screen Negative, Urine Methadone Screen Negative, Ur Barbituates Screen Negative, Ur Phencyclidine Scrn Negative, Ur Amphetamines Screen Negative, U Benzodiazepines Scrn Negative, Urine Cocaine Screen Negative, U Marijuana (THC) Screen Negative 07/20/25 23:35: Troponin I 0.02 07/21/25 06:05: WBC 6.2 D, RBC 4.14 L, Hgb 12.9 D, Hct 38.3, MCV 92.5, MCH 31.2, MCHC 33.7, RDW 12.8, Plt Count 221, MPV 9.0, Neut % (Auto) 66.5, Lymph % (Auto) 19.3, [place] % (Auto) 9.2, Eos % (Auto) 4.2, Baso % (Auto) 0.5, Neut # (Auto) 4.1, Lymph # (Auto) 1.2, [place] # (Auto) 0.6, Eos # (Auto) 0.3, Baso # (Auto) 0.0, Sodium 134 L, Potassium 3.6, Chloride 107, Carbon Dioxide 23, Anion Gap 7.6, BUN 10, Creatinine 0.80, Estimated Creat Clear 40, Estimated GFR 69, Est GFR ( Amer) 83, Glucose 86, Calcium 9.3, Troponin I 0.01 I & O for Last 24 hours: Intake & Output 07/18/25 07/19/25 07/20/25 07/21/25 23:59 23:59 23:59 23:59 Intake Total 100 / 140 40 / 40 Output Total 200 / 200 0 / 0 Balance -100 / -60 40 / 40 Weight 60.237 kg 59.012 kg Constitutional Constitutional: no acute distress *Routine HEENT Exam Head: Present normocephalic Eye: Present EOMI and PERRL ENT: Present mucous membranes moist *Routine Neck Exam Neck: Present supple; Absent lymphadenopathy *Routine Respiratory Exam Respiratory: Present CTA bilaterally *Routine Cardiovascular Exam Cardiovascular: Present RRR *Routine Abdominal Exam Abdominal: Present soft and normoactive bowel sounds; Absent tenderness *Routine Extremities Exam Extremities: Absent cyanosis, clubbing or edema *Routine Skin Exam Skin: Present warm; Absent rash *Routine Neurological Exam Neurological: Present alert and oriented X3 Results Data Completed and Pending Labs on day of discharge: Labs from last 24 hours 07/21/25 07/20/25 07/20/25 06:05 23:35 20:45 WBC 6.2 D RBC 4.14 L Hgb 12.9 D Hct 38.3 MCV 92.5 MCH 31.2 MCHC 33.7 RDW 12.8 Plt Count 221 MPV 9.0 Neut % (Auto) 66.5 Lymph % (Auto) 19.3 [place] % (Auto) 9.2 Eos % (Auto) 4.2 Baso % (Auto) 0.5 Neut # (Auto) 4.1 Lymph # (Auto) 1.2 [place] # (Auto) 0.6 Eos # (Auto) 0.3 Baso # (Auto) 0.0 Sodium 134 L Potassium 3.6 Chloride 107 Carbon Dioxide 23 Anion Gap 7.6 BUN 10 Creatinine 0.80 Estimated Creat Clear 40 Estimated GFR 69 Est GFR ( Amer) 83 Glucose 86 Lactate Calcium 9.3 Total Bilirubin AST ALT Alkaline Phosphatase Troponin I 0.01 0.02 Total Protein Albumin Globulin Albumin/Globulin Ratio Lipase TSH Free T4 Urine Color Urine Appearance Urine pH Ur Specific [place] Urine Protein Urine Glucose (UA) Urine Ketones Urine Blood Urine Nitrate Urine Bilirubin Urine Urobilinogen Ur Leukocyte Esterase Urine RBC Urine WBC Ur Squamous Epith Cells Ur Renal Epithelial Cell Urine Bacteria Urine Opiates Screen Negative Urine Methadone Screen Negative Ur Barbituates Screen Negative Ur Phencyclidine Scrn Negative Ur Amphetamines Screen Negative U Benzodiazepines Scrn Negative Urine Cocaine Screen Negative U Marijuana (THC) Screen Negative 07/20/25 07/20/25 20:39 20:23 WBC 9.2 D RBC 4.81 Hgb 15.1 Hct 43.9 MCV 91.3 MCH 31.4 H MCHC 34.4 RDW 12.7 Plt Count 256 MPV 8.7 Neut % (Auto) 73.8 Lymph % (Auto) 15.5 [place] % (Auto) 7.5 Eos % (Auto) 2.3 Baso % (Auto) 0.7 Neut # (Auto) 6.8 Lymph # (Auto) 1.4 [place] # (Auto) 0.7 Eos # (Auto) 0.2 Baso # (Auto) 0.1 Sodium 135 L Potassium 3.9 Chloride 101 Carbon Dioxide 26 Anion Gap 11.9 BUN 13 Creatinine 0.90 Estimated Creat Clear 40 Estimated GFR 60 Est GFR ( Amer) 72 Glucose 98 Lactate 1.2 Calcium 10.1 Total Bilirubin 0.7 AST 31 ALT 16 Alkaline Phosphatase 93 Troponin I 0.02 Total Protein 8.6 H Albumin 5.3 H D Globulin 3.3 H Albumin/Globulin Ratio 1.6 Lipase 138 TSH 2.97 Free T4 1.24 Urine Color Yellow Urine Appearance Clear Urine pH 6.0 Ur Specific [place] <= 1.005 Urine Protein Negative Urine Glucose (UA) Negative Urine Ketones Trace Urine Blood Negative Urine Nitrate Negative Urine Bilirubin Negative Urine Urobilinogen 0.2 Ur Leukocyte Esterase 2+ A Urine RBC None Urine WBC 3-5 Ur Squamous Epith Cells 3-5 Ur Renal Epithelial Cell 3-5 Urine Bacteria 1+ Urine Opiates Screen Urine Methadone Screen Ur Barbituates Screen Ur Phencyclidine Scrn Ur Amphetamines Screen U Benzodiazepines Scrn Urine Cocaine Screen U Marijuana (THC) Screen DS: Diagnosis Discharge Diagnosis (1) Acute encephalopathy: Status: Acute Code(s): G93.40 - Encephalopathy, unspecified (2) Urinary tract infection: Status: Acute Code(s): N39.0 - Urinary tract infection, site not specified Qualifiers: Hematuria presence: without hematuria Urinary tract infection type: site unspecified Qualified Code(s): N39.0 - Urinary tract infection, site not specified (3) History of recent fall: Status: Acute Code(s): Z91.81 - History of falling (4) Pain of right lower extremity: Status: Acute Code(s): M79.604 - Pain in right leg Meds Home Medications and Allergies Home Medications ?Medication ?Instructions ?Recorded ?Confirmed ?Type cefdinir 300 mg capsule 300 mg PO BID 07/20/25 07/20/25 History cyanocobalamin (vitamin B-12) 1,000 mcg PO DAILY #30 caps 07/21/25 Rx 1,000 mcg capsule New Prescriptions to Start Prescriptions: cyanocobalamin (vitamin B-12) Jeremy Mcclelland Allergies Allergy/AdvReac Type Severity Reaction Status Date / Time No Known Allergies Allergy Verified 10/12/20 13:13 Discharge Plan Disposition Patient Disposition: Home, Self-Care Condition: Fair Follow up Plan Follow up with: Juvenal Espinal MD [Primary Care Provider, Medical] - See instructions Referral Note: please call for appointment Prescriptions/Medication Reconciliation: New cyanocobalamin (vitamin B-12) 1,000 mcg capsule 1,000 mcg PO DAILY Qty: 30 0RF Continued cefdinir 300 mg Capsule 300 mg PO BID Rx Instructions: FILLED 07/20/25 FOR 7 DAY SUPPLY. Problem Reconciliation Problems Reviewed?: Yes Patient Discharge Instructions Patient Instructions: Delirium, DI for Urinary Tract Infection (UTI), DI for Encephalopathy Print Language: Mauritian Providers Primary Care Provider: Juvenal Espinal Admit Provider: Jeremy Mcclelland Attending Provider: Jeremy Mcclelland
[2025-07-21] MEDS: VITAMIN B-12 1,000 MCG 1ML VIAL 1000 MCG IM (12:40)
--- NOTE | 2025-07-23 10:57 | SW/DCPLANNER ---
Phoned patient x2. Patient's number has been discontinued and no longer in service. Pop DILLON Cruise Consultant
== END 2025-07-21 13:36 | disposition home or self-care (01) ==
LOC: ER 20:12 → 2ND 21:07
PROVIDERS: Nurse Practitioner Acute Care; Admitting Provider Student in an Organized Health Care Education/Training Program; Emergency Provider Student in an Organized Health Care Education/Training Program; PCP Family Medicine; Visit Provider Student in an Organized Health Care Education/Training Program
DX: G93.40 Encephalopathy, unspecified (principal); N39.0 Urinary tract infection, site not specified; Z91.81 History of falling; M79.604 Pain in right leg; E78.5 Hyperlipidemia, unspecified; I10 Essential (primary) hypertension
CPT/HCPCS: 36415; 70450; 71045; 80048; 80053; 80307; 81001; 82607; 83605; 83690; 84439; 84443; 84484; 85025; 87086; 93005; 97161; 99285; G0378; J0696; J3420